=== PATIENT | female | born 2000 | race Caucasian/White ===

== ENCOUNTER 2023-10-04 09:02 | Outpatient (CLI) | payer MEDICAID, SELFPAY | END 2023-10-04 09:03 | disposition home or self-care (01) | LOC: NFLDREF 10-07 13:45 | PROVIDERS: Visit Provider Advanced Practice Midwife | DX: Z34.93 Encounter for supervision of normal pregnancy, unspecified, third trimester (principal) | CPT/HCPCS: 86787; 87081; 87653 ==

== ENCOUNTER 2023-10-23 10:03 | Inpatient (IN) | payer OTHER, BC, SELFPAY ==
[2023-10-23] VITALS (41 sets, daily range): BP systolic 122–155; BP diastolic 63–107; PULSE 69–105; RESP 16–18; TEMP 36.7–37.2; O2SAT 97–98
--- NOTE | 2023-10-23 07:16 | P.OBLDTN_ITS ---
OB - Triage/Final Diagnosis Visit Information Date Seen: 10/23/23 Date of evaluation: 10/23/23 Narrative: The patient is a 23 year old 1 para 0 at 39w2d gestation by 1st tri US, who presents with increasing intensity of contractions that started at 4 AM this morning. No LOF. Good FM. No other concerning symptoms. No VARGAS, vision changes or RUQ pain. Here with Fazal. Comments/Additional reasons for admission: H&P 10/08 by Liv Scott CNM Transfer at 34+2 from [facility] FOB: Fazal Gender: surprise #history of vaping, quit with + UPT # varicella non-immune recommend vaccine PP labs 03/31/2023: B positive Negative antibody screen Hemoglobin 14.2 Platelets 321 Rubella immune RPR nonreactive Hepatitis-B surface antigen negative HIV negative Gonorrhea and chlamydia negative Urine culture negative Pap: NIL Hep C negative Hemoglobin A1c 4.8 Varicella immunity: Not immune 10/04/2023 07/26/23: 1 hour GTT: 99 hemoglobin: 13.1 RPR NR Imagin. 03/30/2023: [place]-rump length measures 2.8 cm corresponding to 9 weeks and 5 days. heart rate 170. JOSEPH 10/28/2023 2. 06/28/2023: Anterior placenta. No previa mentioned, however distance from placenta tip to os not included Normal amniotic fluid. Cervix 4.3 cm. Normal anatomy. Evaluation Vital signs: Vital Signs - 24 hr 10/23/23 07:02 Temperature 98.2 F Pulse Rate 75 Respiratory Rate 16 Blood Pressure 151/105 H Pulse Oximetry 98 Comments: Vitals Reviewed Constitutional:? Alert and oriented x3 HEENT:? Normocephalic, atraumatic Neck:? Supple Lungs:? Clear to auscultation bilaterally Heart:? Regular rate and rhythm, no murmur, rub or gallop Abdomen:? Soft, nontender, and gravid. Extremities:? moderate non-pitting edema or erythema Bilateral lower extremitiy Reflexes/Clonus: +3/4; +1 beat clonus Cervix: 2 cm/50%/-2 station/per nursing NST: 145 bpm/moderate variability/accelerations present/decelerations absent/contractions q 4 min, palpating mildly ASSESSMENT:?? 23 at 39w2d weeks gestation?? complicated by:??none Labor type: Early labor?? Category 1 FHR pattern.??? Labor complicated by: elevated BP without diagnosis of HTN GBS negative? ?? PLAN:?? 1. Pre-e labs drawn 2. grossly rupture while in triage 3. Admit for labor with minimal VE due to ROM 4. See admit.
[2023-10-23 07:43] LABS: Hematocrit 35.8 % (33.0-51.0); Hemoglobin* 11.6 gm/dL (12.0-16.0); Mean Corpuscular HGB Conc 32 gm/dL (32-36); Mean Corpuscular Hemoglobin 29 pg (26-34); Mean Corpuscular Volume 88 fL (80-100); Platelet Count* 247 K/uL (140-440); Red Blood Count 4.05 m/uL (4.00-5.20); White Blood Count* 10.64 K/uL (4.50-11.00)
[2023-10-23 07:46] LABS: Slide Review Reflex No
[2023-10-23 07:59] LABS: Creatinine* 0.6 mg/dL (0.5-1.5); Estimated Glomerular Filt Rate 130 ml/min
[2023-10-23 08:00] LABS: Alanine Aminotransferase* 13 U/L (4-35); Aspartate Amino Transferase* 25 U/L (12-35); Blood Urea Nitrogen* 8 mg/dL (5-24)
[2023-10-23 08:58] LABS: Total Protein Urine 23 mg/dL
[2023-10-23 09:01] LABS: Creatinine Urine 118.5 mg/dL; Protein Creatinine Ratio Urine 0.19 (0-0.19)
--- NOTE | 2023-10-23 10:07 | W.PM.LDBA ---
Subjective History of Present Illness Narrative: Patient is being admitted to Labor and Delivery for Spontaneous onset of labor with SROM at approx 0930 am of clear fluid. She is a 23 year old at 39w2d weeks gestation. Her full history and physical was dictated by Leigha Scott on 10/09/2023. Please see this for details. BPs were elevated at admission with normal lab findings. She is planning natural and requests to NOT be asked if she wants an epidural in labor. She is aware of availability of it and will request it if she desires. Fazal wants to cut the cord and announce the baby's gender. He is interested in helping catch the baby also. Specific Issues/Plans H&P 10/08 by Liv Scott CNM Transfer at 34+2 from [facility] FOB: Fazal Gender: surprise #history of vaping, quit with + UPT # varicella non-immune recommend vaccine PP labs 03/31/2023: B positive Negative antibody screen Hemoglobin 14.2 Platelets 321 Rubella immune RPR nonreactive Hepatitis-B surface antigen negative HIV negative Gonorrhea and chlamydia negative Urine culture negative Pap: NIL Hep C negative Hemoglobin A1c 4.8 Varicella immunity: drawn on 10/04/2023 07/26/23: 1 hour GTT: 99 hemoglobin: 13.1 RPR NR Imagin. 03/30/2023: [place]-rump length measures 2.8 cm corresponding to 9 weeks and 5 days. heart rate 170. JOSEPH 10/28/2023 2. 06/28/2023: Anterior placenta. No previa mentioned, however distance from placenta tip to os not included Normal amniotic fluid. Cervix 4.3 cm. Normal anatomy. Tdap: 08/22/23 34 week PHQ-9:1. Pete 7:1 OB - Problem Based A/P Additional Plan (1) Gestational hypertension without significant proteinuria during in third trimester, antepartum: Status: Acute (2) : Status: Acute Plan ASSESSMENT:?? at 39W2D weeks gestation?? complicated by:??none Labor type: Early labor?, Grossly ruptured? Category 1 FHR pattern.??? Labor complicated by: Gestational Hypertension GBS negative? ?? PLAN:?? 1. Routine intrapartum cares as ordered. Continue with expectant management?? 2. Monitoring per policy, continuous 3. Planning unmedicated . Candidate for analgesia of choice.?Will not offer epidural, but patient is aware of availability as desired. 4. Patient encouraged to reposition and ambulate to promote physiologic labor and .?? 5. GHTN diagnosed. Currently mild to moderate range.? 6. Limit VE 7. Anticipate ? OB Exam Physical Exam Vital signs: Temp Pulse Resp BP Pulse Ox 98.2 F 83 16 144/102 H 98 10/23/23 07:02 10/23/23 09:55 10/23/23 07:02 10/23/23 09:55 10/23/23 07:02 Narrative: Admit exam completed in triage earlier this morning and was as follows... Vitals Reviewed again Constitutional:? Alert and oriented x3 HEENT:? Normocephalic, atraumatic Neck:? Supple Lungs:? Clear to auscultation bilaterally Heart:? Regular rate and rhythm, no murmur, rub or gallop Abdomen:? Soft, nontender, and gravid. Extremities:? moderate non-pitting edema or erythema Bilateral lower extremity Reflexes/Clonus: +3/4; +1 beat clonus Cervix: 2 cm/50%/-2 station/per nursing exam earlier this morning Currently NST: 145 bpm/moderate variability/accelerations present/decelerations absent/contractions q 2-4 min, palpating moderately
--- NOTE | 2023-10-23 17:21 | PM.OBPNL ---
Subjective Time Seen by Provider: 17:00 Date Seen: 10/23/23 Narrative: Margaret is resting comfortably in bed utilizing nitrous oxide. Ruptured grossly at 0937, clear fluid. Increasing intensity of contractions through out the day. Her BPs hae lowered to normal range as of late. Her partner has gone to get bags. Objective Exam: Exam deferred as I did not want to wake patient at the moment. Objective: NST: 130s bpm/moderate variability/accelerations present/decelerations absent( Of note, rare variables during the day)/contractions not being picked up adequately on the monitor at the moment, but previously had been regular. Vital Signs: Last Vital Signs Temp 98.6 F 10/23/23 16:29 Pulse 84 10/23/23 16:26 Resp 16 10/23/23 07:02 BP 126/78 10/23/23 16:26 Pulse Ox 98 10/23/23 15:02 Plan Plan: ASSESSMENT:?? 23 at 39w2d weeks gestation?? complicated by:??none Labor type: Early labor?? Category 1 FHR pattern.? SROM 0937 10/23/2023?? Labor complicated by: Gestational HTN GBS negative? ?? PLAN:?? 1. Routine intrapartum cares as ordered. Continue with expectant management. Plan to check cervix soon for progression of labor.?? 2. Monitoring per policy, continuous 3. Planning unmedicated . Candidate for analgesia of choice.?To continue nitrous use for now. 4. Anticipate NSVB
--- NOTE | 2023-10-23 17:54 | PM.OBPNL ---
Subjective Date Seen: 10/23/23 Narrative: Margaret is coping well with labor using nitrous and position changes with breathing techniques. Fazal is supporting her at the bedside. Objective Exam: Objective: Constitutional: Alert and oriented x3, coping well Vital signs stable, see nurse documentation Abdomen: gravid Cervix: 7 cm/75%/0 station/vertex confirmed with palpable sutures, forebag bulgin palpated NST: 135 bpm/moderate variability/accelerations present/decelerations rare, but variables are present Vital Signs: Last Vital Signs Temp 98.2 F 10/23/23 17:37 Pulse 95 10/23/23 17:37 Resp 16 10/23/23 17:37 BP 123/76 10/23/23 17:37 Pulse Ox 98 10/23/23 15:02 Plan Plan: ASSESSMENT:?? 23 at 39w2d weeks gestation?? complicated by:??none Labor type: Early labor?? Category 1 FHR pattern.? SROM 0937 10/23/2023?? Labor complicated by: Gestational HTN, currently normotensive GBS negative? ?? PLAN:?? 1. Routine intrapartum cares as ordered. Continue with expectant management. ROM of forebag offered and declined at this time. 2. Monitoring per policy, continuous 3. Planning unmedicated . Candidate for analgesia of choice.?To continue nitrous use for now. 4. Anticipate NSVB
--- NOTE | 2023-10-23 21:08 | P.OBPN_ITS ---
Subjective Date Seen: 10/23/23 Narrative: Mireille has been coping well with labor and support. Diogenes at bedside and harris pportive. I have been in the room with the nurse since 1814 also helping with labor support. Margaret has had intermittent small pushes since about 1924, but they were strong and not very often. Since AROM of forebag, clear fluid, the urge to push is growing in intensity. Mireille has changed positions from toilet to standing, to toilet, to kneeling on bed, now to right lateral with peanut. She is taking small sips of water about every 10-15 min. Continuing to use nitrous intermittently Objective Exam: Objective: Constitutional: Alert and oriented x3, mild distress, coping well with support Vital signs stable, see nurse documentation Abdomen: gravid, contractions palpate strong with contractions and soft between >1 min Cervix: 9 cm/90%/+1 station/vertex NST: currently 145 bpm/moderate variability/accelerations present/ variable decelerations present/contractions every 5-6 min but approx 2 min long by observing Mireille cope with them. Earlier period of decreased variability that was longer than expected for a sleep cycle. This stimulated position changes and the VE with consideration of rupture of the forebag. The moderate variability has improved since ROM. Vital Signs: Last Vital Signs Temp 98.9 F 10/23/23 18:27 Pulse 86 10/23/23 18:27 Resp 18 10/23/23 18:27 BP 123/63 10/23/23 18:27 Pulse Ox 98 10/23/23 15:02 Plan Plan: Labor A/P? ASSESSMENT:?? 23 at 39w2d gestation?? complicated by:??none Labor type: Spontaneous, Active labor?with SROM? Category 2 FHR pattern.??? Labor complicated by: GHTN, currently normotensive?? GBS negative? ?? PLAN:?? 1. Routine intrapartum cares as ordered. Continue with expectant management? with conservative management of heart rate decelerations 2. Monitoring per policy, continuous?? 3. Planning unmedicated . Candidate for analgesia of choice.??Continue nitrous as desired? 4. Patient encouraged to reposition and ambulate to promote physiologic labor and .?? 5. Anticipate ? 6. Consent for AMTSL received from Sarah. 7. Peripheral IV start with consent in case of necessity.
[2023-10-24] VITALS (22 sets, daily range): BP systolic 98–144; BP diastolic 63–98; PULSE 85–156; RESP 16; TEMP 36.7–37.1; O2SAT 95–96
--- NOTE | 2023-10-24 01:33 | P.OBPN_ITS ---
Subjective Date Seen: 10/24/23 Narrative: Mireille has continued to labor amazingly well. She has declined pitocin to augment labor up until now. Her contractions have remained every 5-6 minutes and the intensity has varied. Pressure to push has not yet been consistent. Augmentation was offered at 10 pm last ang due to concerns over unproductive labor. position now feels less ideal in ROP and asynclitic. Mireille does have increasing pressure to bear down and encouraged to breathe through. She inquires about Fent anyl. She verbalizes that she didn't want to be instructed to push in her plan because she was afraid of tearing. Risk of lacerations has been reviewed with her. RNs have been very helpful encouraging different position techniques to promote baby's rotation. With continued protracted labor, Mireille now agrees to pitocin augmentation. Objective Exam: Objective: Constitutional: Alert and oriented x3, moderate, coping well Vital signs stable, see nurse documentation Abdomen: gravid, contractions palpate moderate with contractions and soft between > 1 min Cervix: 9 cm/90%/0 station/vertex NST: 140 bpm/moderate variability/accelerations present/no decelerations currently/contractions q 4-6 min. Over last 4 hours, intermittent deep variables with contractions. Vital Signs: Last Vital Signs Temp 98.4 F 10/24/23 00:05 Pulse 92 10/24/23 00:09 Resp 18 10/23/23 18:27 BP 139/96 H 10/24/23 00:09 Pulse Ox 98 10/23/23 15:02 Plan Plan: ASSESSMENT:?? 23 at 39w2d gestation?? complicated by:??none Labor type: Spontaneous, Active labor?with SROM?(protracted 1st stage) Category 2 FHR pattern.??? Labor complicated by: GHTN, mild range elevation currently GBS negative? ?? PLAN:?? 1. Routine intrapartum cares as ordered. Initiate pitocin augmentation per policy 2. Monitoring per policy, continuous, Moderate variability has remained and retu rn of accelerations is intermittent.?? 3. Planning unmedicated . Candidate for analgesia of choice.??Continue nitrous as desired. Consider IV narcotic as desired and able for safety. 4. Patient encouraged to reposition and ambulate to promote physiologic labor and .?? 5. Anticipate ? 6. Consent for AMTSL received from Mireille and Diogenes.
[2023-10-24] MEDS: OXYTOCIN 30 unit/500 ML in NS 30 UNIT/500 ML BAG IVPB (01:46)
[2023-10-24] MEDS: LACTATED RINGERS 1000 ML 1,000 ML 125 ML IV (01:46)
[2023-10-24] MEDS: miSOPROStoL 800 MCG/4 TABLET PR (08:24)
[2023-10-24] MEDS: lidocaine HCL 2 % JELLY (TOP) STERILE 6 ML TOPICAL (08:24)
[2023-10-24] MEDS: LIDOCAINE 1 % PF 30 ML INJECTION (08:24)
[2023-10-24] MEDS: fentaNYL 100 MCG/2 ML inj IVP (08:38)
--- NOTE | 2023-10-24 09:08 | W.PM.OBVAGDE ---
OB Procedure Vag Delivery Mother Details Mother Details: The patient is a 23 year-old, 2, Para 0, admitted on 10/23/23 at 39.3 weeks gestation. : 2 Para: 1 Weeks Gestation: 39.3 Admission Date: 10/23/23 Additional Details Amniotic Membrane Status: SROM Amniotic Membrane Rupture Date: 10/23/23 Amniotic Membrane Rupture Time: 09:37 Amniotic Membrane Fluid Description: Clear Analgesia/Anesthesia Type: Nitrous Oxide Waterbirth: No Pitcoin: Yes Intrapartal Events: Labor Augmentation Delivery augmentation: pitocin Labor Onset: 16:00 Complete: 03:10 Pushin:25 Heart: heart tones during second stage were Category 2, with moderate variability. Variables with contractions to 100's with return to baseline of 145. Delivery Details Delivery Date: 10/24/23 Delivery Time: 07:46 Route of delivery: Gender: Female Infant Viability: Alive; Heart Rate Present Position at Delivery: OP Delivery Details: 23?y.o?at 39.3 weeks.? Margaret was admitted with SROM since 10/22/23. She was progressing slowly and was augmented with IV Pitocin. She pushed effectively for 4+ hours in multiple positions. She was complete and pushing this morning making slow progress. We turned her from right and left tilt position, noted meconium stained fluid and requested pediatrics to attend delivery. She delivered the head direct OP, there was a nuchal cord which could not be reduced. Baby was somersaulted and body assisted out while attempting to reduce cord. Noted double nuchal with cord crossed over itself on baby's back once delivered, this was reduced and baby placed on mother's abdomen. There was thick meconium just behind the baby and a large amount came after delivery. ? ? She became complete at 0310.? Spontaneous vaginal delivery at 0746 of?a viable? female infant.??Delivered in vertex OA position.??Shoulders delivered easily.? Spontaneous cry noted.?? placed on maternal abdomen.??Cord?was clamped and cut after a 5+ minute delay.??Nose and mouth were bulb suctioned.? Shoulder dystocia: no? Nuchal cord: yes times 2 and crossed over itself on baby's back? Meconium stained?fluid: yes thick? Water : no? ? ? 8 at 1 minute and 9 at 5 minutes.? Weight is 7lbs 14oz. . ? Placenta delivered spontaneously and?complete?at 0757 with a?3 vessel?cord.?? Bleeding controlled with fundal massage and?pitocin?for AMTSL.? There was small continued tricking after and rectal Cytotec was given. ? Mother and were stable after delivery.? ? Lacerations:? bilateral labial lacerations, repaired with 3-0?vicryl.?? ? Bleeding?post delivery?was: moderate. ?The fundus was firm to palpation.? Blood loss: 300?mL.? Blood loss measurement type: QBL? ? ? Sponge,?lap?and needles counts are correct.? Mother and infant were stable after delivery.? 1 Minute Interval Total Score: 8 5 Minute Interval Total Score: 9 Additional Details Shoulder Dystocia: No Placenta Delivery Time: 07:57 Placental Delivery Description: Spontaneous Delivery repair: Vicryl Procedure Done: Global Blood Loss: 300 Laceration: Labial (bilateral) Blood Loss Measurement Type: QBL Bakri Used: No Sponge/Need Count Correct: Yes Cord Vessel Description: 3 Vessels, Nuchal Cord, Tight, Around Body and Delivered through Event Summary Status: Mother and infant were stable after delivery. Disposition: floor
[2023-10-24] MEDS: IBUPROFEN 600 MG TABLET PO ×3 (09:49→22:10)
[2023-10-24] MEDS: DOCUSATE SODIUM 100 MG CAPSULE PO (19:51)
[2023-10-25] VITALS (8 sets, daily range): BP systolic 118–146; BP diastolic 76–96; PULSE 77–96; RESP 16–20; TEMP 36.4–37.1; O2SAT 97–99
[2023-10-25] MEDS: IBUPROFEN 600 MG TABLET PO ×3 (05:35→22:57)
--- NOTE | 2023-10-25 11:54 | PM.OBPNVD1 ---
OB - PN:Subj Subjective Date Seen: 10/25/23 Patient comments OB post-: no complaints, pain well controlled, tolerating diet and flatus present [place] status: and doing well [place] feeding status: exclusively Narrative: Margaret feels well.? Her pain is well controlled with current medications.? She has no new complaints.? Urinary output is adequate and she is voiding without difficulty.? Has a good appetite, is tolerating a general diet, is passing flatus, and has not yet had a bowel movement.? Has small amount of rubra lochia.? She is ambulating well.?She was considering discharge home today but decided to stay for help and support. Blood pressures have been stable but will continue to monitor. Will plan for discharge home tomorrow. ? OB - PN: Obj Exam Physical Exam: Vital signs: Temp Pulse Resp BP Pulse Ox O2 Del Method 97.6 F 89 16 118/84 98 Room Air 10/25/23 09:23 10/25/23 09:23 10/25/23 09:23 10/25/23 09:23 10/25/23 09:23 10/25/23 09:23 Narrative: GENERAL APPEARANCE:? normal affect, alert, no distress? MOOD:? appropriate? CHEST:? clear to auscultation and percussion? HEART:? regular rate and rhythm? ABDOMEN:? soft, non-tender the uterine fundus is U/2 and is appropriate for the stage of recovery.? PERINEUM:? mild edema of the perineum, there is a labial laceration that is healing well.? EXTREMITIES:? normal and no edema OB - PN: A/P Delivery Assessment and Plan (1) Gestational hypertension without significant proteinuria during in third trimester, antepartum: Status: Acute (2) Lactating mother: Status: Acute (3) care following vaginal delivery: Status: Acute Plan day: 1 Plan: routine care Comments: Anticipate discharge home tomorrow.
[2023-10-25 22:51] LABS: Rapid Plasma Reagin (RPR) Non Reactive (Non Reactive)
[2023-10-26 04:00] VITALS: BP 131/86; PULSE 80; RESP 18; TEMP 36.7; O2SAT 98
[2023-10-26] MEDS: IBUPROFEN 600 MG TABLET PO (05:18)
[2023-10-26] MEDS: DOCUSATE SODIUM 100 MG CAPSULE PO (08:48)
[2023-10-26 08:50] VITALS: BP 136/91; PULSE 80; RESP 18; TEMP 36.8; O2SAT 98
--- NOTE | 2023-10-26 08:58 | P.DS_ITS ---
DS: Providers Provider Date Seen: 10/26/23 Date of admission: 10/23/23 10:03 Primary care physician: Not a Local Provider Admitting Clinician: Ronnie Burks CNM Attending Physician on discharge: Dania Lewis CNM Date of Discharge: 10/26/23 DS: Diagnosis Discharge Diagnosis (1) care following vaginal delivery: Status: Acute (2) Lactating mother: Status: Acute (3) Gestational hypertension without significant proteinuria during in third trimester, antepartum: Status: Acute Exam Narrative: Exam Narrative: GENERAL APPEARANCE:? normal affect, alert, no distress MOOD:? appropriate CHEST:? clear to auscultation HEART:? regular rate and rhythm ABDOMEN:? soft, non-tender the uterine fundus is At Umbilicus, Midline and is appropriate for the stage of recovery. PERINEUM:? deferred due to current session. RN to check efore discharge. EXTREMITIES:? normal and minimal edema Const: Vital Signs, click to edit/add: Vital Signs - 24 hr 10/25/23 09:23 10/25/23 12:31 10/25/23 17:22 Temperature 97.6 F 97.8 F 98.1 F Pulse Rate [Blood Pressure Cuff] 89 77 77 Respiratory Rate 16 18 20 Blood Pressure [Le ft Arm] 118/84 124/85 146/96 H Pulse Oximetry 98 98 98 Oxygen Delivery Me thod Room Air Room Air Room Air 10/25/23 18:01 10/25/23 20:34 10/25/23 23:46 Temperature 98.8 F 98.4 F Pulse Rate [Blood Pressure Cuff] 88 87 84 Respiratory Rate 16 16 16 Blood Pressure [Le ft Arm] 126/85 127/86 132/80 Pulse Oximetry 99 97 98 Oxygen Delivery Me thod Room Air Room Air Room Air 10/26/23 04:00 Temperature 98.1 F Pulse Rate [Blood Pressure Cuff] 80 Respiratory Rate 18 Blood Pressure [Le ft Arm] 131/86 Pulse Oximetry 98 Oxygen Delivery Me thod Room Air OB - DS: Summary Hospital Course Hospital Course: The patient is a 23 year old G 2 P 1011 at 39w2d weeks gestation that was admitted to the Center on 10/23/23 for spontaneous onset of labor with rupture of membranes. She had an uncomplicated vaginal/delivery, but was diagno sed with GHTN in labor. VSS have been stable with only one mild elevation of BP since 10/25/2023. She delivered a viable female infant. the patient has done well. The patient feels well.? The pain is well controlled with current medications.? She has no new complaints.? She is breast feeding and reports things are going well. She has remained afebrile.? Has a good appetite, is tolerating a general diet.? She is voiding without difficulty.? She is passing gas and has not had a bowel movement.? She is ambulating and denies any dizziness.? Has small amount of rubra lochia. She is planning POP for prevention.? ?? Problems: none, GHTN stable? Discharge home with baby.? Follow up in 2 weeks and 6 weeks.? , may see if needed? Hgb 11.6. ? GHTN Labs WNL or stable with trending? Discharge home with BP cuff if does not already have one? ?Call for signs/symptoms of preeclampsia? Peripartum Data delivery method: Vaginal Laceration description: Labial Episiotomy description: None complications: none [place] Infant Gender: Female Discharge Plan: Home Status at Discharge Overall status at discharge: patient is progressing back to baseline Time Spent with Patient Time attestation: Total time spent providing and/or coordinating discharge services: Time spent: Less than 30 minutes Discharge Plan Discharge Disposition: Home, Self-Care Date of Admission: 10/23/23 10:03 Attending Provider on Discharge: Dania Lewis Primary Care Provider: Provider,Not a Local Condition: Stable Anticipated Discharge Date/Time: 10/26/23 12:00 Discharge Medications: New acetaminophen 500 mg Tablet 1,000 mg PO Q6H PRNQty: 60 0RF ibuprofen 600 mg Tablet 600 mg PO Q6H PRNQty: 60 0RF senna 8.6 mg capsule 8.6 - 17.2 mg PO QHS PRN (Reason: constipation) Qty: 60 0RF Rx Instructions: 1-2 caps q HS by mouth prn (DME) blood pressure monitor [Blood Pressure Kit] Kit See Rx Instructions .Route Qty: 1 0RF Rx Instructions: As directed Continued DHA 200 mg capsule 200 mg PO DAILY Discontinued loratadine [Claritin] 10 mg tablet 10 mg PO QDAY Discharge Orders: Discharge Order (Routine); Ordered 10/26/23 Ordered By: Dania Lewis Patient Education: OB High Blood Pressure DC, OB [place] Care, OB Vaginal/Breast Feeding Additional Instructions: For pain control of perineum, breast and pelvic pain, take 600 mg Ibuprofen every 6 hours as needed by mouth or 1000 mg acetaminophen (Tylenol) every 6 hours by mouth as needed. You can alternate these so you are taking something every 3 hours as needed. A heating pad can also be used for your abdomen or breasts.? Activity Level: Activity as Tolerated Discharge Diet: Regular Follow Up Appointments: [facility] Inst[facility]
[2023-10-26 09:26] VITALS: BP 141/92
== END 2023-10-26 13:30 | disposition home or self-care (01) | DRG 807 ==
LOC: OB OUT 10:03 → OB 10:03
PROVIDERS: Admitting Provider Midwife; Visit Provider Advanced Practice Midwife
DX: O13.4 Gestational [pregnancy-induced] hypertension without significant proteinuria, complicating childbirth (principal); Z37.0 Single live birth; O77.0 Labor and delivery complicated by meconium in amniotic fluid; O70.0 First degree perineal laceration during delivery; Z3A.39 39 weeks gestation of pregnancy; O69.81X0 Labor and delivery complicated by cord around neck, without compression, not applicable or unspecified
CPT/HCPCS: 36415; 82565; 82570; 84156; 84450; 84460; 84520; 85027; 86592; 88307; A9270; J2001; J3010; J7120

== ENCOUNTER 2023-10-28 11:48 | Emergency (ER) | payer OTHER, BC, SELFPAY ==
[2023-10-28 11:50] VITALS: BP 144/93; PULSE 78; RESP 18; TEMP 36.6; O2SAT 98; BMI 25.8
--- NOTE | 2023-10-28 12:07 | ED.GENADULT ---
HPI - General Adult General Time Seen by Provider: 12:07 Date Seen: 10/28/23 Chief complaint: Unspecified Complaint, Adult Stated complaint: High BP, 5 days Time Seen by Provider: 10/28/23 12:05 Source: patient, RN notes reviewed and old records reviewed Mode of arrival: ambulatory Limitations: no limitations History of Present Illness HPI narrative: Margaret is a very pleasant 23-year-old female who is the mother IV a girl born on [birth year] who comes to the emergency room as she notes that her blood pressures have been running higher than normal. No problems noted during but elevated blood pressures were noted during her delivery. Delivery was with aOP presentation and complicated by a nuchal cord but no problems following that they were able to go home on time. During her last 2 weeks of she did have some lower extremity edema. Notes that that is not gone yet but has not been getting worse-in fact she states has been getting better as she has been wearing her compression stockings. Blood pressures at home that she takes twice a day have been approximately 140/90. She has not had any fever chills abdominal pain headache nausea vomiting floaters in her vision and has been overall feeling very well. Patient happened to be in OB today for recheck mention her blood pressures and they sent her to the emergency room for evaluation. Related Data Home Medications ?Medication ?Instructions ?Recorded ?Confirmed docosahexaenoic acid 200 mg 200 mg PO DAILY 09/18/23 10/23/23 capsule ( DHA) Previous Rx's ?Medication ?Instructions ?Recorded acetaminophen 500 mg tablet 1,000 mg (2 x 500 mg) PO Q6H PRN 10/26/23 #60 tabs blood pressure monitor (Blood #1 ea 10/26/23 Pressure Kit) ibuprofen 600 mg tablet 600 mg PO Q6H PRN #60 tabs 10/26/23 sennosides 8.6 mg capsule (senna) 8.6 - 17.2 mg (1 - 2 x 8.6 mg) PO 10/26/23 QHS PRN constipation #60 caps nifedipine 30 mg tablet,extended 30 mg PO DAILY #14 tabs 10/28/23 release Allergies Allergy/AdvReac Type Severity Reaction Status Date / Time No Known Drug Allergies Allergy Verified 10/16/23 15:20 Review of Systems Status of ROS: Reports: 10 or more systems reviewed and unremarkable except as noted in History and below Const: Denies: fever or chills Eyes: Denies: blurry vision, light sensitivity or seeing flashes ENMT: Denies: neck pain Cardio: Reports: swelling of feet/ankles; Denies: chest pain or shortness of breath with exertion Resp: Denies: shortness of breath GI: Denies: abdominal pain, nausea or vomiting : Denies: painful urination Musculo: Reports: extremity swelling; Denies: back pain, neck pain or extremity pain Integ/Breast: Denies: rash Neuro: Denies: headache, numbness in extremities, lack of coordination, dizziness, confusion, behavioral changes or slurred speech PFSH PFSH Medical History History of nicotine vaping ?Z87.891 - Personal history of nicotine dependence (ICD-10) Social History Narrative: Occupation: In between jobs. Marital status: Significant other. Jehovah'S Witness/cultural needs: no. Chemical or radiation exposure: no. Pre- tobacco use: Vaping, quit with positive test. Pre- alcohol use: no. Current tobacco use: no. Current alcohol use: no. Recreational drug use: no. Dietary restrictions: no. Blood transfusion acceptable in an emergency: yes. PSYCHOSOCIAL HISTORY: History of depression or currently depressed: no. Current or past physical, emotional, or sexual mistreatment: no. Problems that will make it hard to make it to appointments: no. What is your current living situation?: I presently have a place to live Problems where you live: no known problems In the past 12 months, utilities in danger of being shut off: no In past 12 months, lack of transportation kept you from medical appts, meetings, work, or getting things needed for daily living: no In the past 12 mos, have been you worried that your food would run out before you had money to buy more?: never true In the past 12 mos, the food you bought just didn't last and you didn't have money to buy more?: never true Smoking Status: Never smoker Do you use any of these nicotine containing products: None Second hand tobacco smoke exposure: No How often do you have a drink containing alcohol: never AUDIT-C Alcohol total score: 0 Non-prescribed substance use: denies use How often does anyone, including family, friends and others, physically hurt you: never How often does anyone, including family, friends and others, insult or talk down to you: never How often does anyone, including family, friends and others, threaten you with harm: never How often does anyone, including family, friends and others, scream or curse at you: never Little interest or pleasure in doing things: not at all Feeling down, depressed, or hopeless: not at all Exam Narrative: Exam Narrative: Alert and oriented. No acute distress. Mentating normally. External ears eyes nose clear. No photophobia. Heart with regular rate and rhythm and lungs are clear bilaterally. Abdomen soft nontender. Specifically no tenderness in the right upper quadrant. Lower extremity show compression stockings in place. Likely 1+ peripheral edema of the feet. Moving all extremities. Const: Vital Signs, click to edit/add: Vital Signs - 24 hr 10/28/23 11:50 10/28/23 12:22 Temperature 97.9 F Pulse Rate [Right Pulse Oximeter] 78 Respiratory Rate 18 Blood Pressure 134/95 H Blood Pressure [Ri ght Upper Arm] 144/93 H Pulse Oximetry 98 Oxygen Delivery Me thod Room Air Documenting provider has reviewed patient's vital signs: yes Eye: Direct Ophthalmoscopy: no photophobia Course Course ED Course: At this time will obtain labs to rule out preeclampsia although patient has lower extremity edema it is actually improving. Will check urinalysis for protein urea, CBC, comprehensive panel, uric acid and then speak to our OB on-call. Will also place her on serial blood pressures here. Reevaluation(s) Reevaluation #1: Patient continues to be well. No headache, confusion, abdominal pain, photophobia. One blood pressure 144/93 and subsequent blood pressure 134/95 with normal pulse. Vital Signs Vital signs: Initial Vital Signs Temperature 97.9 F 10/28/23 11:50 Temperature Source Temporal Artery Scan 10/28/23 11:50 Pulse Rate 78 10/28/23 11:50 Respiratory Rate 18 10/28/23 11:50 Blood Pressure 144/93 H 10/28/23 11:50 Blood Pressure Mean 110 H 10/28/23 11:50 Blood Pressure Position Sitting 10/28/23 11:50 Pulse Oximetry 98 10/28/23 11:50 Oxygen Delivery Method Room Air 10/28/23 11:50 Vital Signs Temperature 97.9 F 10/28/23 11:50 Pulse Rate 78 10/28/23 11:50 Respiratory Rate 18 10/28/23 11:50 Blood Pressure 144/93 H 10/28/23 11:50 Pulse Oximetry 98 10/28/23 11:50 Oxygen Delivery Method Room Air 10/28/23 11:50 Temperature 97.9 F 10/28/23 11:50 Pulse Rate 78 10/28/23 11:50 Respiratory Rate 18 10/28/23 11:50 Blood Pressure 134/95 H 10/28/23 12:22 Pulse Oximetry 98 10/28/23 11:50 Oxygen Delivery Method Room Air 10/28/23 11:50 Medical Decision Making MDM Narrative Medical decision making narrative: 1. hypertension-at this time patient does have lower extremity edema per her report but is improving. Otherwise no headache visual changes abdominal pain. No past history of blood pressure issues during . This appeared to be present during her stay in the hospital after delivering on October 23 them was present when she was discharged 2 days ago. Normal labs here today including CBC, comprehensive panel and uric acid. At this time I do consult with MAYANK Palacios who does suggest treatment with nifedipine and follow-up in the clinic. Thus we will treat with nifedipine extended release 30 mg daily with follow-up in the clinic in the next 72 hours. Recommend returning to the ED for systolic blood pressure greater than 150 and diastolic blood pressure greater than 100. 2. Disposition-home at this time. Return for worsening symptoms. Continue breast-feeding. Avoid salty foods. Patient and significant other voiced understanding. Medical Records Medical records reviewed: Yes I reviewed the patient's medical records Lab Data Lab results reviewed: Yes I reviewed the patient's lab results Labs: Lab Results 10/28/23 Range/Units 12:17 WBC 8.09 (4.50-11.00) K/uL RBC 3.87 L (4.00-5.20) m/uL Hgb 11.1 L (12.0-16.0) gm/dL Hct 34.9 (33.0-51.0) % MCV 90 (80-100) fL MCH 29 (26-34) pg MCHC 32 (32-36) gm/dL RDW Coeff of Zulma 13.0 (11.5-15.5) % Plt Count 309 (140-440) K/uL Neut % (Auto) 72.6 H (42.0-72.0) % Lymph % (Auto) 18.8 L (20-44) % [place] % (Auto) 4.8 (0.0-11.0) % Eos % (Auto) 3.0 (0.0-7.0) % Baso % (Auto) 0.4 (0.0-3.0) % Neut # (Auto) 5.90 (1.7-7.0) K/uL Lymph # (Auto) 1.50 (0.90-2.90) K/uL [place] # (Auto) 0.40 (0.00-0.90) K/UL Eos # (Auto) 0.24 (0.00-0.50) K/uL Baso # (Auto) 0.03 (0.00-0.30) K/uL Abs Immat Gran (auto) 0.03 (0.00-0.30) K/uL Imm/Tot Granulo (auto) 0.4 % Sodium 137 (135-149) mmol/L Potassium 4.1 (3.6-5.1) mmol/L Chloride 105 (96-114) mmol/L Carbon Dioxide 25 (20-32) mmol/L Anion Gap 7 (7-15) mEq/L BUN 10 (5-24) mg/dL Creatinine 0.8 (0.5-1.5) mg/dL Estimated Creat Clear 103.26 Estimated GFR 107 ml/min Glucose 76 (60-115) mg/dL Uric Acid 6.6 (2.2-8.4) mg/dL Calcium 8.6 (8.4-10.6) mg/dL Total Bilirubin 0.5 (0.1-1.5) mg/dL AST 35 (12-35) U/L ALT 24 (4-35) U/L Alkaline Phosphatase 109 (40-150) U/L Total Protein 6.6 (6.0-8.3) g/dL Albumin 3.7 (3.3-5.0) g/dL Discharge Plan Discharge Clinical Impression: Hypertension in , condition Patient Disposition: Home, Self-Care Condition: Unchanged Additional Instructions: In consultation with the obstetrical physician, they would like you to start an antihypertensive or blood pressure medication called nifedipine. This has been sent to your pharmacy. Continue to take her blood pressure twice a day. Make sure you are sitting for a few minutes before taking her blood pressure. If the blood pressure number on top is 150 or more or the number on the bottom is 100 or more please return to the emergency room. Follow-up with 1 of the OB docs on Monday or Monday. Your name has been sent to triage so that when you call in you should be able to get an appointment. The phone number is [phone] Return as needed. Prescriptions: New nifedipine 30 mg tablet extended release 30 mg PO DAILY Qty: 14 0RF No Action DHA 200 mg capsule 200 mg PO DAILY acetaminophen 500 mg Tablet 1,000 mg PO Q6H PRNQty: 60 0RF ibuprofen 600 mg Tablet 600 mg PO Q6H PRNQty: 60 0RF senna 8.6 mg capsule 8.6 - 17.2 mg PO QHS PRN (Reason: constipation) Qty: 60 0RF Rx Instructions: 1-2 caps q HS by mouth prn (DME) blood pressure monitor [Blood Pressure Kit] Kit See Rx Instructions .Route Qty: 1 0RF Rx Instructions: As directed Follow Up/Referrals: Provider,Not a Local [Primary Care Provider] - Stand Alone Forms: [employer] Info Instructions
[2023-10-28 12:22] VITALS: BP 134/95
[2023-10-28 12:29] LABS: Basophils Absolute Auto 0.03 K/uL (0.00-0.30); Basophils Percent Auto 0.4 % (0.0-3.0); Eosinophils Absolute Auto 0.24 K/uL (0.00-0.50); Hematocrit 34.9 % (33.0-51.0); Hemoglobin* 11.1 gm/dL (12.0-16.0); Immature Granulocytes Abs Auto 0.03 K/uL (0.00-0.30); Immature Granulocytes Pct Auto 0.4 %; Lymphocytes Percent Auto 18.8 % (20-44); Mean Corpuscular HGB Conc 32 gm/dL (32-36); Mean Corpuscular Hemoglobin 29 pg (26-34); Mean Corpuscular Volume 90 fL (80-100); Monocytes Percent Auto 4.8 % (0.0-11.0); Neutrophils Percent Auto 72.6 % (42.0-72.0); Platelet Count* 309 K/uL (140-440); Red Blood Count 3.87 m/uL (4.00-5.20); White Blood Count* 8.09 K/uL (4.50-11.00)
[2023-10-28 12:30] LABS: Slide Review Reflex No
[2023-10-28 12:44] LABS: Albumin* 3.7 g/dL (3.3-5.0); Chloride* 105 mmol/L (96-114); Potassium* 4.1 mmol/L (3.6-5.1); Sodium* 137 mmol/L (135-149)
[2023-10-28 12:46] LABS: Bilirubin Total* 0.5 mg/dL (0.1-1.5); Creatinine* 0.8 mg/dL (0.5-1.5); Est. Creatinine Clearance* 103.26; Estimated Glomerular Filt Rate 107 ml/min
[2023-10-28 12:47] LABS: Alanine Aminotransferase* 24 U/L (4-35); Alkaline Phosphatase* 109 U/L (40-150); Anion Gap 7 mEq/L (7-15); Aspartate Amino Transferase* 35 U/L (12-35); Blood Urea Nitrogen* 10 mg/dL (5-24); Calcium* 8.6 mg/dL (8.4-10.6); Carbon Dioxide* 25 mmol/L (20-32); Glucose* 76 mg/dL (60-115); Total Protein* 6.6 g/dL (6.0-8.3); Uric Acid* 6.6 mg/dL (2.2-8.4)
== END 2023-10-28 13:21 | disposition home or self-care (01) ==
PROVIDERS: Emergency Provider Family Medicine
DX: O16.5 Unspecified maternal hypertension, complicating the puerperium (principal)
CPT/HCPCS: 36415; 80053; 81001; 84550; 85025; 99283; 99284

== ENCOUNTER 2023-12-19 09:01 | Outpatient (CLI) | payer OTHER, BC, SELFPAY ==
--- NOTE | 2023-12-19 09:15 | CRLHL7_ITS ---
For Patients: As a result of the Cures Act, medical imaging exams and procedure reports are released immediately into your electronic medical record. You may view this report before your referring provider. If you have questions, please contact your health care provider. RIGHT BREAST ULTRASOUND CLINICAL HISTORY: RIGHT breast right lump, . COMPARISON: None. TECHNIQUE: Real-time ultrasound imaging of RIGHT breast with imaging documentation. FINDINGS: Targeted RIGHT breast ultrasound 9 o`clock 10 cm from the nipple performed. In this location, there is a circumscribed hypoechoic solid-appearing structure measuring 5 x 4 x 9 millimeters without abnormal vascularity. IMPRESSION: Benign lactating adenoma. No suspicious findings. RECOMMENDATIONS: Clinical follow-up. Results and recommendations were discussed with the patient at the time of the exam. BI-RADS Category 2: Benign A lay language report of this examination will be provided to the patient. Dictated by Adelfo Chavarria MD @ 12/19/2023 2:47:05 PM maribelj/Dictated by: Adelfo Chavarria MD @ 12/19/2023 2:47:00 PM (Electronically Signed)
== END 2023-12-19 09:02 | disposition home or self-care (01) ==
LOC: US 09:02
PROVIDERS: Visit Provider Registered Nurse
DX: N63.10 Unspecified lump in the right breast, unspecified quadrant (principal); Z39.1 Encounter for care and examination of lactating mother
CPT/HCPCS: 76642

== ENCOUNTER 2024-04-05 15:33 | Outpatient (CLI) | payer BC, SELFPAY ==
[2024-04-05 22:33] LABS: Chlamydia DNA Amplified* NOT DETECTED (No Detected); GC DNA Amplified* NOT DETECTED (No Detected)
== END 2024-04-05 15:34 | disposition home or self-care (01) ==
LOC: NFLDREF 15:33
PROVIDERS: Visit Provider Registered Nurse
DX: Z11.3 Encounter for screening for infections with a predominantly sexual mode of transmission (principal)
CPT/HCPCS: 87491; 87591